=== PATIENT | male | born 1995 | race Two or more races ===

== ENCOUNTER 2020-10-01 21:33 | Emergency (ER) | payer MEDICAID, OTHER ==
[~2020-10-01] VITALS: Ht 170.2 cm; Wt 86.2 kg
[2020-10-02 06:44] VITALS: BP 149/96
== END 2020-10-02 06:48 | disposition home or self-care (01) ==
LOC: ER 21:33
DX: S16.1XXA Strain of muscle, fascia and tendon at neck level, initial encounter (principal); R51.9 Headache, unspecified; Z90.89 Acquired absence of other organs; V49.49XA Driver injured in collision with other motor vehicles in traffic accident, initial encounter; Y93.89 Activity, other specified; Y92.488 Other paved roadways as the place of occurrence of the external cause; Y99.8 Other external cause status
CPT/HCPCS: 70450; 72125

== ENCOUNTER 2024-02-09 16:46 | Emergency (ER) | payer MEDICAID ==
[~2024-02-09] VITALS: Ht 170.2 cm; Wt 82.0 kg
[2024-02-09 16:58] VITALS: BP 141/82; PULSE 101; RESP 20; O2SAT 99
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
[2024-02-09] MEDS ORDERED: KETO2CRE4 TOP (17:14)
== END 2024-02-09 17:18 | disposition home or self-care (01) ==
LOC: ER 16:46
DX: N48.1 Balanitis (principal); Z90.49 Acquired absence of other specified parts of digestive tract